=== PATIENT | male | born 1990 | race Caucasian/White ===

== ENCOUNTER 2017-03-17 19:25 | Inpatient (IN) | payer MEDICAID ==
[~2017-03-17] VITALS: Ht 188 cm; Wt 101.7 kg
[~2017-03-17 19:25] MED LIST: HYDR-4031 PO; LITH300C3 PO; VITAD1000 PO
[2017-03-17 20:00] VITALS: BP 108/78
[2017-03-17] MEDS ORDERED: ARIP300S3 IM (20:24)
[2017-03-17] MEDS ORDERED: LORazepam 2 MG TABLET PO PRN (20:30)
[2017-03-17] MEDS ORDERED: ZOLPIDEM TARTRATE 10 MG TABLET PO PRN (20:30)
[2017-03-17] MEDS ORDERED: HALOPERIDOL 5 MG TABLET PO PRN (20:30)
[2017-03-17] MEDS ORDERED: PNEUMOCOCCAL VACCINE POLYVALENT 0.5 ML VIAL [PPSV23] IM ONE (21:15)
[2017-03-18] MEDS: LITHIUM CARBONATE 300 MG CAPSULE PO SCH ×2 (10:05→16:19)
[2017-03-18] MEDS: SERTRALINE HCL 50 MG TABLET PO SCH (10:05)
[2017-03-18 10:21] VITALS: BP 120/66
[2017-03-18] MEDS ORDERED: BENZOCAINE/MENTHOL LOZENGE [8 LOZENGES/PACKET] MM PRN (12:00)
[2017-03-18] MEDS ORDERED: BACITRACIN 28.4 GM OINTMENT TP PRN (12:00)
[2017-03-18] MEDS ORDERED: LOPERAMIDE HCL 2 MG CAPSULE PO PRN (12:00)
[2017-03-18] MEDS ORDERED: CloNIDine HCL 0.1 MG TABLET PO PRN (12:00)
[2017-03-18] MEDS ORDERED: MAGNESIUM HYDROXIDE SUSPENSION 30 ML UDCUP PO PRN (12:00)
[2017-03-18] MEDS ORDERED: ALBUTEROL SULFATE HFA 90 MCG/PUFF 8 GM INHALER IH PRN (12:00)
[2017-03-18] MEDS ORDERED: IBUPROFEN 600 MG TABLET PO PRN (12:00)
[2017-03-18] MEDS ORDERED: TRIAMCINOLONE 0.1% 15 GM OINTMENT TP PRN (12:00)
[2017-03-18] MEDS ORDERED: ACETAMINOPHEN 325 MG TABLET PO PRN (12:00)
[2017-03-18] MEDS ORDERED: ONDANSETRON HCL 4 MG TABLET PO PRN (12:00)
[2017-03-18] MEDS ORDERED: PETROLATUM,WHITE 71 GM JELLY TP PRN (12:00)
[2017-03-18] MEDS ORDERED: MAG HYDROX/AL HYDROX/SIMETH ES 30 ML SUSPENSION UDCUP PO PRN (12:00)
[2017-03-19 08:30] VITALS: BP 90/69
[2017-03-19] MEDS: CHOLECALCIFEROL (VIT D3) 1,000 UNITS TABLET PO SCH (09:15)
[2017-03-19] MEDS: LITHIUM CARBONATE 300 MG CAPSULE PO SCH ×2 (09:15→16:10)
[2017-03-19] MEDS: SERTRALINE HCL 50 MG TABLET PO SCH (09:15)
[2017-03-19 17:07] VITALS: BP 117/71
[2017-03-20 07:10] LABS: BASOPHILS % (AUTO) 0.5 % (0.0-2.0); EOSINOPHILS % (AUTO) 6.5 % (1.0-6.0); HEMATOCRIT 45.5 % (41-53); HEMOGLOBIN 15.3 g/dL (13.5-17.5); LYMPHOCYTES # (AUTO) 1.5 K/uL (1.0-4.8); LYMPHOCYTES % (AUTO) 23.9 % (22.0-44.0); MEAN CORPUSCULAR HEMOGLOBIN 29.5 pg (26.0-34.0); MEAN CORPUSCULAR HGB CONC 33.5 G/dL (31.0-37.0); MEAN CORPUSCULAR VOLUME 88 fL (80-100); MONOCYTES # (AUTO) 0.5 K/uL (0.1-1.0); MONOCYTES % (AUTO) 7.6 % (2.0-9.0); NEUTROPHILS # (AUTO) 3.9 K/uL (1.8-7.7); NEUTROPHILS % (AUTO) 61.5 % (40.0-70.0); PLATELET COUNT (AUTO) 217 K/uL (150-450); RED BLOOD CELL COUNT(AUTO) 5.17 MIL/uL (4.50-5.90); RED CELL DISTRIBUTION WIDTH 14.5 % (11.5-14.5); WHITE BLOOD COUNT (AUTO) 6.3 K/uL (4.5-11.0)
[2017-03-20 07:57] LABS: HEMOGLOBIN A1C 5.4 % (4.5-6.2)
[2017-03-20 08:11] LABS: ALANINE AMINOTRANSFERASE 81 U/L (12-78); ALBUMIN 4.1 g/dL (3.4-5.0); ANION GAP 10 mmol/L (8-16); ASPARTATE AMINOTRANSFERASE 26 U/L (15-37); BILIRUBIN,TOTAL 0.4 mg/dL (0.1-1.0); CALCIUM, TOTAL 8.7 mg/dL (8.8-10.5); CARBON DIOXIDE 24 mmol/L (22-29); CHLORIDE 106 mmol/L (98-107); CHOL/HDL RATIO 4.3 (4.2-7.3); CREATININE 0.91 mg/dL (0.60-1.30); GLOMERULAR FILTR. RATE CALC > 60 mL/min (>60); POTASSIUM 4.2 mmol/L (3.5-5.1); SODIUM SERUM 140 mmol/L (136-145); THYROID STIMULATING HORMONE 0.33 uIU/mL (0.36-3.74); TOTAL PROTEIN, SERUM 7.6 g/dL (6.4-8.2); UREA NITROGEN, BLOOD 13 mg/dL (7-18)
[2017-03-20] MEDS: CHOLECALCIFEROL (VIT D3) 1,000 UNITS TABLET PO SCH (09:54)
[2017-03-20] MEDS: SERTRALINE HCL 50 MG TABLET PO SCH (09:55)
[2017-03-20] MEDS: LITHIUM CARBONATE 300 MG CAPSULE PO SCH ×2 (09:56→17:03)
[2017-03-20 10:20] VITALS: BP 113/65
[2017-03-20 18:25] VITALS: BP 122/80
[2017-03-21 08:47] VITALS: BP 129/69
[2017-03-21] MEDS: LITHIUM CARBONATE 300 MG CAPSULE PO SCH ×2 (10:07→17:15)
[2017-03-21] MEDS: SERTRALINE HCL 50 MG TABLET PO SCH (10:07)
[2017-03-21] MEDS: CHOLECALCIFEROL (VIT D3) 1,000 UNITS TABLET PO SCH (10:07)
[2017-03-21 16:44] VITALS: BP 126/71
[2017-03-22 08:42] VITALS: BP 124/74
[2017-03-22] MEDS: LITHIUM CARBONATE 300 MG CAPSULE PO SCH (09:00)
[2017-03-22] MEDS: CHOLECALCIFEROL (VIT D3) 1,000 UNITS TABLET PO SCH (09:00)
[2017-03-22] MEDS: SERTRALINE HCL 50 MG TABLET PO SCH (09:00)
[2017-03-22] MEDS ORDERED: SERT50TA12 PO (11:50)
== END 2017-03-22 15:42 | disposition home or self-care (01) | DRG 750 ==
LOC: 3EI 20:41 → EDSTATUS 20:42
PROVIDERS: ADMIT Psychiatry & Neurology Psychiatry; ATTEND Psychiatry & Neurology Psychiatry
DX: F20.0 Paranoid schizophrenia (principal); Z91.19 Patient's noncompliance with other medical treatment and regimen; E55.9 Vitamin D deficiency, unspecified; E66.9 Obesity, unspecified; F12.90 Cannabis use, unspecified, uncomplicated; F17.200 Nicotine dependence, unspecified, uncomplicated; G47.00 Insomnia, unspecified; J45.909 Unspecified asthma, uncomplicated; K59.00 Constipation, unspecified; L30.9 Dermatitis, unspecified; Z59.0 Homelessness; Z71.51 Drug abuse counseling and surveillance of drug abuser; Z65.3 Problems related to other legal circumstances; Z28.21 Immunization not carried out because of patient refusal
CPT/HCPCS: 82306; 83036; 84439; 84443

== ENCOUNTER 2017-04-09 20:11 | Inpatient (IN) | payer MEDICAID ==
[~2017-04-09 20:11] MED LIST changes: -HYDR-4031 PO; +SERT50TA12 PO
[2017-04-09] MEDS ORDERED: DiphenhydrAMINE HCL 50 MG/ML VIAL ONE (20:44)
[2017-04-09] MEDS ORDERED: HALOPERIDOL LACTATE 5 MG/ML VIAL ONE (20:44)
[2017-04-09] MEDS ORDERED: LORazepam 2 MG/ML VIAL ONE (20:44)
[2017-04-09] MEDS ORDERED: DiphenhydrAMINE HCL 50 MG/ML VIAL IM ONE (20:45)
[2017-04-09] MEDS ORDERED: HALOPERIDOL LACTATE 5 MG/ML VIAL IM ONE (20:45)
[2017-04-09] MEDS ORDERED: LORazepam 2 MG/ML VIAL IM ONE (20:45)
[2017-04-09] MEDS ORDERED: ZOLPIDEM TARTRATE 10 MG TABLET PO PRN (20:45)
[2017-04-09 21:00] VITALS: BP 147/92
[2017-04-09] MEDS ORDERED: PNEUMOCOCCAL VACCINE POLYVALENT 0.5 ML VIAL [PPSV23] IM ONE (21:45)
[2017-04-09 21:47] VITALS: BP 120/76
[2017-04-10 08:32] VITALS: BP 130/71
[2017-04-10] MEDS ORDERED: ARIPiprazole ER SUSPENSION 400 MG PRE-FILLED DUAL CHAMBER SYRINGE IM ONE (09:00)
[2017-04-10] MEDS: SERTRALINE HCL 50 MG TABLET PO SCH (10:13)
[2017-04-10] MEDS: HALOPERIDOL 5 MG TABLET PO PRN (10:13)
[2017-04-10] MEDS: ARIPiprazole 10 MG TABLET PO SCH (10:14)
[2017-04-10] MEDS: LORazepam 2 MG TABLET PO PRN (10:14)
[2017-04-10] MEDS ORDERED: MAGNESIUM HYDROXIDE SUSPENSION 30 ML UDCUP PO PRN (10:30)
[2017-04-10] MEDS ORDERED: BACITRACIN 28.4 GM OINTMENT TP PRN (10:30)
[2017-04-10] MEDS ORDERED: MAG HYDROX/AL HYDROX/SIMETH ES 30 ML SUSPENSION UDCUP PO PRN (10:30)
[2017-04-10] MEDS ORDERED: ACETAMINOPHEN 325 MG TABLET PO PRN (10:30)
[2017-04-10] MEDS ORDERED: BENZOCAINE/MENTHOL LOZENGE MM PRN (10:30)
[2017-04-10] MEDS ORDERED: ONDANSETRON HCL 4 MG TABLET PO PRN (10:30)
[2017-04-10] MEDS ORDERED: PETROLATUM,WHITE 71 GM JELLY TP PRN (10:30)
[2017-04-10] MEDS ORDERED: LOPERAMIDE HCL 2 MG CAPSULE PO PRN (10:30)
[2017-04-10] MEDS ORDERED: ALBUTEROL SULFATE HFA 90 MCG/PUFF 8 GM INHALER IH PRN (10:30)
[2017-04-10] MEDS ORDERED: CloNIDine HCL 0.1 MG TABLET PO PRN (10:30)
[2017-04-10] MEDS ORDERED: IBUPROFEN 600 MG TABLET PO PRN (10:30)
[2017-04-10] MEDS: LITHIUM CARBONATE 300 MG ER TABLET PO SCH ×2 (13:38→21:43)
[2017-04-10] MEDS: HydrOXYzine PAMOATE 25 MG CAPSULE PO SCH ×2 (13:42→17:02)
[2017-04-10] MEDS ORDERED: TRIAMCINOLONE 0.1% 15 GM OINTMENT TP PRN (15:30)
[2017-04-10 16:00] VITALS: BP 118/70
[2017-04-11 06:56] VITALS: BP 130/72
[2017-04-11 08:00] VITALS: BP 127/73
[2017-04-11 09:05] LABS: BASOPHILS % (AUTO) 0.3 % (0.0-2.0); EOSINOPHILS % (AUTO) 4.5 % (1.0-6.0); HEMATOCRIT 43.4 % (41-53); HEMOGLOBIN 14.5 g/dL (13.5-17.5); LYMPHOCYTES # (AUTO) 1.5 K/uL (1.0-4.8); MEAN CORPUSCULAR HEMOGLOBIN 29.8 pg (26.0-34.0); MEAN CORPUSCULAR HGB CONC 33.5 G/dL (31.0-37.0); MEAN CORPUSCULAR VOLUME 89 fL (80-100); MONOCYTES # (AUTO) 0.4 K/uL (0.1-1.0); MONOCYTES % (AUTO) 4.9 % (2.0-9.0); NEUTROPHILS # (AUTO) 6.3 K/uL (1.8-7.7); NEUTROPHILS % (AUTO) 73.3 % (40.0-70.0); PLATELET COUNT (AUTO) 218 K/uL (150-450); RED BLOOD CELL COUNT(AUTO) 4.88 MIL/uL (4.50-5.90); RED CELL DISTRIBUTION WIDTH 14.4 % (11.5-14.5); WHITE BLOOD COUNT (AUTO) 8.6 K/uL (4.5-11.0)
[2017-04-11] MEDS: SERTRALINE HCL 50 MG TABLET PO SCH (09:12)
[2017-04-11] MEDS: HydrOXYzine PAMOATE 25 MG CAPSULE PO SCH ×3 (09:12→16:29)
[2017-04-11] MEDS: LITHIUM CARBONATE 300 MG ER TABLET PO SCH ×2 (09:12→16:29)
[2017-04-11] MEDS: ARIPiprazole 10 MG TABLET PO SCH (09:28)
[2017-04-11 10:08] LABS: ALANINE AMINOTRANSFERASE 61 U/L (12-78); ALBUMIN 3.7 g/dL (3.4-5.0); ANION GAP 9 mmol/L (8-16); ASPARTATE AMINOTRANSFERASE 20 U/L (15-37); BILIRUBIN,TOTAL 0.3 mg/dL (0.1-1.0); CALCIUM, TOTAL 8.4 mg/dL (8.8-10.5); CARBON DIOXIDE 24 mmol/L (22-29); CHLORIDE 107 mmol/L (98-107); CHOL/HDL RATIO 3.6 (4.2-7.3); CREATININE 0.88 mg/dL (0.60-1.30); GLOMERULAR FILTR. RATE CALC > 60 mL/min (>60); POTASSIUM 3.9 mmol/L (3.5-5.1); SODIUM SERUM 140 mmol/L (136-145); THYROID STIMULATING HORMONE 0.64 uIU/mL (0.36-3.74); UREA NITROGEN, BLOOD 13 mg/dL (7-18)
[2017-04-11 10:40] LABS: HEMOGLOBIN A1C 5.6 % (4.5-6.2)
[2017-04-11 16:00] VITALS: BP 140/89
[2017-04-12 08:44] VITALS: BP 106/58
[2017-04-12] MEDS: SERTRALINE HCL 50 MG TABLET PO SCH (09:24)
[2017-04-12] MEDS: LITHIUM CARBONATE 300 MG ER TABLET PO SCH ×2 (09:24→16:34)
[2017-04-12] MEDS: HydrOXYzine PAMOATE 25 MG CAPSULE PO SCH ×3 (09:24→16:34)
[2017-04-12] MEDS: ARIPiprazole 10 MG TABLET PO SCH (09:24)
[2017-04-12 16:00] VITALS: BP 130/67
[2017-04-13 06:30] VITALS: BP 125/74
[2017-04-13 08:27] VITALS: BP 127/71
[2017-04-13] MEDS: SERTRALINE HCL 50 MG TABLET PO SCH (08:35)
[2017-04-13] MEDS: HydrOXYzine PAMOATE 25 MG CAPSULE PO SCH ×3 (08:35→17:07)
[2017-04-13] MEDS: LITHIUM CARBONATE 300 MG ER TABLET PO SCH ×2 (08:35→17:07)
[2017-04-13] MEDS: ARIPiprazole 10 MG TABLET PO SCH (08:35)
[2017-04-13 16:37] VITALS: BP 132/63
[2017-04-14 08:12] VITALS: BP 111/66
[2017-04-14] MEDS: HydrOXYzine PAMOATE 25 MG CAPSULE PO SCH ×3 (09:23→16:38)
[2017-04-14] MEDS: ARIPiprazole 10 MG TABLET PO SCH (09:29)
[2017-04-14] MEDS: SERTRALINE HCL 50 MG TABLET PO SCH (09:29)
[2017-04-14] MEDS: LITHIUM CARBONATE 300 MG ER TABLET PO SCH (09:29)
[2017-04-14 16:33] VITALS: BP 126/85
[2017-04-14] MEDS: LORazepam 2 MG TABLET PO PRN (16:38)
[2017-04-14] MEDS: HALOPERIDOL 5 MG TABLET PO PRN (16:39)
[2017-04-15] MEDS: HydrOXYzine PAMOATE 25 MG CAPSULE PO SCH ×3 (08:57→16:48)
[2017-04-15] MEDS: ARIPiprazole 10 MG TABLET PO SCH (08:57)
[2017-04-15] MEDS: SERTRALINE HCL 50 MG TABLET PO SCH (08:57)
[2017-04-15 09:37] VITALS: BP 114/70
[2017-04-15] MEDS: LITHIUM CARBONATE 300 MG CAPSULE PO SCH ×2 (11:19→16:48)
[2017-04-15 16:00] VITALS: BP 115/67
[2017-04-15] MEDS: LORazepam 2 MG TABLET PO PRN (16:48)
[2017-04-16 02:37] VITALS: BP 110/72
[2017-04-16 08:00] VITALS: BP 122/70
[2017-04-16] MEDS: SERTRALINE HCL 50 MG TABLET PO SCH (09:25)
[2017-04-16] MEDS: HydrOXYzine PAMOATE 25 MG CAPSULE PO SCH ×3 (09:25→16:31)
[2017-04-16] MEDS: LITHIUM CARBONATE 300 MG CAPSULE PO SCH ×2 (09:25→16:31)
[2017-04-16] MEDS: ARIPiprazole 10 MG TABLET PO SCH (09:25)
[2017-04-16 16:00] VITALS: BP 114/73
[2017-04-16] MEDS: LORazepam 2 MG TABLET PO PRN (16:31)
[2017-04-17 06:40] VITALS: BP 113/63
[2017-04-17 08:17] VITALS: BP 117/59
[2017-04-17] MEDS: ARIPiprazole 10 MG TABLET PO SCH (09:19)
[2017-04-17] MEDS: SERTRALINE HCL 50 MG TABLET PO SCH (09:20)
[2017-04-17] MEDS: HydrOXYzine PAMOATE 25 MG CAPSULE PO SCH ×3 (09:20→16:16)
[2017-04-17] MEDS: LITHIUM CARBONATE 300 MG CAPSULE PO SCH ×2 (09:20→16:16)
[2017-04-17] MEDS ORDERED: ARIPiprazole ER SUSPENSION 400 MG PRE-FILLED DUAL CHAMBER SYRINGE IM ONE (13:00)
[2017-04-17 16:00] VITALS: BP 116/76
[2017-04-17] MEDS: LORazepam 2 MG TABLET PO PRN (16:16)
[2017-04-18 06:24] VITALS: BP 112/75
[2017-04-18 08:14] VITALS: BP 120/65
[2017-04-18] MEDS: HydrOXYzine PAMOATE 25 MG CAPSULE PO SCH ×3 (09:58→16:40)
[2017-04-18] MEDS: LORazepam 2 MG TABLET PO PRN ×2 (09:58→16:40)
[2017-04-18] MEDS: ARIPiprazole 10 MG TABLET PO SCH (09:58)
[2017-04-18] MEDS: LITHIUM CARBONATE 300 MG CAPSULE PO SCH ×2 (09:58→16:40)
[2017-04-18] MEDS: SERTRALINE HCL 50 MG TABLET PO SCH (09:58)
[2017-04-18 16:00] VITALS: BP 131/69
[2017-04-19 06:00] VITALS: BP 119/71
[2017-04-19 08:35] VITALS: BP 123/75
[2017-04-19] MEDS: LITHIUM CARBONATE 300 MG CAPSULE PO SCH ×2 (09:46→16:30)
[2017-04-19] MEDS: HydrOXYzine PAMOATE 25 MG CAPSULE PO SCH ×3 (09:46→16:30)
[2017-04-19] MEDS: SERTRALINE HCL 50 MG TABLET PO SCH (09:46)
[2017-04-19] MEDS: ARIPiprazole 10 MG TABLET PO SCH (09:46)
[2017-04-19 16:00] VITALS: BP 130/70
[2017-04-19] MEDS: LORazepam 2 MG TABLET PO PRN (16:30)
[2017-04-20 07:03] VITALS: BP 129/78
[2017-04-20 08:00] VITALS: BP 125/81
[2017-04-20] MEDS: HydrOXYzine PAMOATE 25 MG CAPSULE PO SCH ×3 (09:07→16:15)
[2017-04-20] MEDS: ARIPiprazole 10 MG TABLET PO SCH (09:07)
[2017-04-20] MEDS: LITHIUM CARBONATE 300 MG CAPSULE PO SCH ×2 (09:07→16:15)
[2017-04-20] MEDS: SERTRALINE HCL 50 MG TABLET PO SCH (09:07)
[2017-04-20] MEDS: LORazepam 2 MG TABLET PO PRN ×2 (09:07→16:15)
[2017-04-20 16:00] VITALS: BP 114/71
[2017-04-21 06:25] VITALS: BP 104/65
[2017-04-21 08:44] VITALS: BP 121/72
[2017-04-21] MEDS: HydrOXYzine PAMOATE 25 MG CAPSULE PO SCH ×3 (09:22→16:22)
[2017-04-21] MEDS: ARIPiprazole 10 MG TABLET PO SCH (09:22)
[2017-04-21] MEDS: LORazepam 2 MG TABLET PO PRN ×2 (09:23→16:22)
[2017-04-21] MEDS: LITHIUM CARBONATE 300 MG CAPSULE PO SCH ×2 (09:23→16:22)
[2017-04-21] MEDS: SERTRALINE HCL 50 MG TABLET PO SCH (09:23)
[2017-04-21 16:00] VITALS: BP 118/68
[2017-04-22 06:50] VITALS: BP 118/72
[2017-04-22 08:42] VITALS: BP 124/75
[2017-04-22] MEDS: ARIPiprazole 10 MG TABLET PO SCH (09:52)
[2017-04-22] MEDS: SERTRALINE HCL 50 MG TABLET PO SCH (09:52)
[2017-04-22] MEDS: LORazepam 2 MG TABLET PO PRN ×2 (09:52→16:52)
[2017-04-22] MEDS: HydrOXYzine PAMOATE 25 MG CAPSULE PO SCH ×3 (09:52→16:51)
[2017-04-22] MEDS: LITHIUM CARBONATE 300 MG CAPSULE PO SCH ×2 (09:52→16:51)
[2017-04-22 16:34] VITALS: BP 118/71
[2017-04-23 06:41] VITALS: BP 119/66
[2017-04-23 09:45] VITALS: BP 111/68
[2017-04-23] MEDS: LITHIUM CARBONATE 300 MG CAPSULE PO SCH ×2 (09:48→16:40)
[2017-04-23] MEDS: SERTRALINE HCL 50 MG TABLET PO SCH (09:48)
[2017-04-23] MEDS: HydrOXYzine PAMOATE 25 MG CAPSULE PO SCH ×3 (09:48→16:40)
[2017-04-23] MEDS: ARIPiprazole 10 MG TABLET PO SCH (09:48)
[2017-04-23 16:26] VITALS: BP 134/71
[2017-04-23] MEDS: LORazepam 2 MG TABLET PO PRN (16:40)
[2017-04-24 06:26] VITALS: BP 108/62
[2017-04-24] MEDS: LITHIUM CARBONATE 300 MG CAPSULE PO SCH (08:34)
[2017-04-24] MEDS: ARIPiprazole 10 MG TABLET PO SCH (08:34)
[2017-04-24] MEDS: LORazepam 2 MG TABLET PO PRN ×2 (08:34→16:17)
[2017-04-24] MEDS: HydrOXYzine PAMOATE 25 MG CAPSULE PO SCH ×3 (08:34→16:17)
[2017-04-24] MEDS: SERTRALINE HCL 50 MG TABLET PO SCH (08:34)
[2017-04-24 08:38] VITALS: BP 105/62
[2017-04-24 16:00] VITALS: BP 130/81
[2017-04-24] MEDS: LITHIUM CITRATE SOLUTION 8 MEQ/5 ML [8 MEQ = 300 MG] UDCUP PO SCH (16:17)
[2017-04-25 01:24] VITALS: BP 115/68
[2017-04-25] MEDS: SERTRALINE HCL 50 MG TABLET PO SCH (08:47)
[2017-04-25] MEDS: HydrOXYzine PAMOATE 25 MG CAPSULE PO SCH ×3 (08:47→16:31)
[2017-04-25] MEDS: ARIPiprazole 10 MG TABLET PO SCH (08:49)
[2017-04-25 09:16] VITALS: BP 114/61
[2017-04-25] MEDS: LITHIUM CITRATE SOLUTION 8 MEQ/5 ML [8 MEQ = 300 MG] UDCUP PO SCH ×2 (09:21→16:32)
[2017-04-25 16:35] VITALS: BP 106/75
[2017-04-26 05:59] VITALS: BP 115/64
[2017-04-26] MEDS: LITHIUM CITRATE SOLUTION 8 MEQ/5 ML [8 MEQ = 300 MG] UDCUP PO SCH (08:45)
[2017-04-26] MEDS: ARIPiprazole 10 MG TABLET PO SCH (08:46)
[2017-04-26] MEDS: SERTRALINE HCL 50 MG TABLET PO SCH (08:46)
[2017-04-26] MEDS: HydrOXYzine PAMOATE 25 MG CAPSULE PO SCH ×2 (08:46→12:48)
[2017-04-26 09:10] VITALS: BP 120/79
[2017-04-26] MEDS ORDERED: LITH8SOL PO (10:14)
[2017-04-26] MEDS ORDERED: HYDR-4031 PO (10:14)
[2017-04-26] MEDS ORDERED: ARIP20TA PO (10:14)
== END 2017-04-26 12:20 | disposition home or self-care (01) | DRG 750 ==
LOC: EDSTATUS 20:48 → B3A 20:48 → B2S 04-24 13:44
PROVIDERS: ADMIT Psychiatry & Neurology Psychiatry; ATTEND Psychiatry & Neurology Psychiatry
DX: F20.0 Paranoid schizophrenia (principal); E55.9 Vitamin D deficiency, unspecified; E66.9 Obesity, unspecified; F12.90 Cannabis use, unspecified, uncomplicated; G47.00 Insomnia, unspecified; J45.909 Unspecified asthma, uncomplicated; K59.00 Constipation, unspecified; L30.9 Dermatitis, unspecified; R51 Headache; Z71.51 Drug abuse counseling and surveillance of drug abuser; E58 Dietary calcium deficiency; Z79.899 Other long term (current) drug therapy; Z28.21 Immunization not carried out because of patient refusal
CPT/HCPCS: 83036; 84443; 87081; J0401; J1200; J1630; J2060

== ENCOUNTER 2022-06-25 19:18 | Emergency (ER) | payer MEDICAID ==
[~2022-06-25] VITALS: Ht 185.4 cm; Wt 114.0 kg
[~2022-06-25 19:18] MED LIST changes: +ARIP20TA PO; +HYDR-4808 PO; -LITH300C3 PO; +LITH8SOL PO; +SERT-158 PO; -SERT50TA12 PO; -VITAD1000 PO
[2022-06-25] MEDS ORDERED: LORazepam 2 MG TABLET PO ONE (20:00)
[2022-06-25] MEDS ORDERED: ONDANSETRON HCL 4 MG TABLET PO ONE (20:00)
[2022-06-25 20:15] LABS: BASOPHILS % (AUTO) 0.6 % (0.0-2.0); EOSINOPHILS % (AUTO) 6.2 % (1.0-6.0); HEMATOCRIT 43.6 % (41-53); HEMOGLOBIN 14.2 g/dL (13.5-17.5); LYMPHOCYTES # (AUTO) 1.4 K/uL (1.0-4.8); LYMPHOCYTES % (AUTO) 24.6 % (22.0-44.0); MEAN CORPUSCULAR HEMOGLOBIN 29.4 pg (26.0-34.0); MEAN CORPUSCULAR HGB CONC 32.6 G/dL (31.0-37.0); MEAN CORPUSCULAR VOLUME 90 fL (80-100); MONOCYTES # (AUTO) 0.4 K/uL (0.1-1.0); MONOCYTES % (AUTO) 7.9 % (2.0-9.0); NEUTROPHILS # (AUTO) 3.4 K/uL (1.8-7.7); NEUTROPHILS % (AUTO) 60.7 % (40.0-70.0); PLATELET COUNT (AUTO) 212 K/uL (150-450); RED BLOOD CELL COUNT(AUTO) 4.83 MIL/uL (4.50-5.90); RED CELL DISTRIBUTION WIDTH 13.7 % (11.5-14.5)
[2022-06-25 20:22] LABS: COVID AG,FIA SOURCE NASOPHARYNGEAL
[2022-06-25 20:25] LABS: ANION GAP 7 mmol/L (8-16); CARBON DIOXIDE 28 mmol/L (22-29); CHLORIDE 106 mmol/L (98-107); CREATININE 0.83 mg/dL (0.60-1.30); GLUCOSE,RANDOM 98 mg/dL (70-110); POTASSIUM 3.8 mmol/L (3.5-5.1); SODIUM SERUM 141 mmol/L (136-145); UREA NITROGEN, BLOOD 12 mg/dL (7-18)
[2022-06-25 20:26] LABS: GLOMERULAR FILTR. RATE CALC > 60 mL/min (>60)
[2022-06-25 20:30] LABS: ALANINE AMINOTRANSFERASE 158 U/L (12-78); ALKALINE PHOSPHATASE 125 U/L (46-116); ASPARTATE AMINOTRANSFERASE 58 U/L (15-37); BILIRUBIN,TOTAL 0.2 mg/dL (0.1-1.0); TOTAL PROTEIN, SERUM 7.8 g/dL (6.4-8.2)
[2022-06-26 14:42] VITALS: BP 122/72
== END 2022-06-26 17:32 | disposition left against medical advice (07) ==
LOC: EMS 19:18
DX: F25.9 Schizoaffective disorder, unspecified (principal); F15.10 Other stimulant abuse, uncomplicated; J45.909 Unspecified asthma, uncomplicated; F31.9 Bipolar disorder, unspecified; F17.210 Nicotine dependence, cigarettes, uncomplicated; F12.90 Cannabis use, unspecified, uncomplicated; F14.90 Cocaine use, unspecified, uncomplicated; Z20.822 Contact with and (suspected) exposure to COVID-19
CPT/HCPCS: 99285; 87426; 80053; 85025; 36415; G0480; Q0162

== ENCOUNTER 2022-06-26 20:41 | Emergency (ER) | payer MEDICAID ==
[~2022-06-26] VITALS: Ht 185.4 cm; Wt 100.0 kg
[2022-06-26 22:18] VITALS: BP 129/77
== END 2022-06-26 22:26 | disposition home or self-care (01) ==
LOC: EMS 20:43
DX: F41.9 Anxiety disorder, unspecified (principal); F15.10 Other stimulant abuse, uncomplicated; J45.909 Unspecified asthma, uncomplicated; F31.9 Bipolar disorder, unspecified; F20.9 Schizophrenia, unspecified; F17.210 Nicotine dependence, cigarettes, uncomplicated; F12.90 Cannabis use, unspecified, uncomplicated; F14.90 Cocaine use, unspecified, uncomplicated
CPT/HCPCS: 99281; Z7502

== ENCOUNTER 2022-06-27 08:45 | Inpatient (IN) | payer MEDICAID ==
[~2022-06-27] VITALS: Ht 185.4 cm; Wt 107.7 kg
[2022-06-27 10:03] LABS: COVID AG,FIA SOURCE NASOPHARYNGEAL
[2022-06-27 10:53] LABS: INFLUENZA TYPE A NEGATIVE FOR TYPE A (NEGATIVE); INFLUENZA TYPE B NEGATIVE FOR TYPE B (NEGATIVE)
[2022-06-27] MEDS ORDERED: ZOLPIDEM TARTRATE 10 MG TABLET PO PRN (13:30)
[2022-06-27 16:31] LABS: APPEARANCE,URINE CLEAR (CLEAR); BILIRUBIN,URINE NEGATIVE (NEGATIVE); GLUCOSE, URINE (UA) NEGATIVE (NEGATIVE); KETONES,URINE NEGATIVE (NEGATIVE); LEUKOCYTE ESTERASE ,URINE NEGATIVE (NEGATIVE); NITRATE,URINE NEGATIVE (NEGATIVE); OCCULT BLOOD,URINE NEGATIVE (NEGATIVE); SPECIFIC GRAVITIY, URINE 1.027 (1.003-1.030); UROBILINOGEN,URINE <=1.0 mg/dL (<=1.0)
[2022-06-27 16:37] LABS: AMPHET/METH SCREEN,URINE POSITIVE (NEGATIVE); BARBITURATE SCREEN, URINE NEGATIVE (NEGATIVE); BENZODIAZEPINES SCREEN,URINE NEGATIVE (NEGATIVE); CANNABINOID SCREEN,URINE POSITIVE (NEGATIVE); COCAINE SCREEN,URINE NEGATIVE (NEGATIVE); METHADONE SCREEN, URINE NEGATIVE (NEGATIVE); OPIATE SCREEN,URINE NEGATIVE (NEGATIVE)
[2022-06-27 16:38] LABS: PHENCYCLIDINE SCREEN,URINE NEGATIVE (NEGATIVE)
[2022-06-27 16:44] LABS: PROTEIN,URINE NEGATIVE (NEGATIVE)
[2022-06-27] MEDS: LORazepam 2 MG TABLET PO PRN (21:07)
[2022-06-27] MEDS: HALOPERIDOL 5 MG TABLET PO PRN (21:07)
[2022-06-28 01:46] VITALS: BP 127/97
[2022-06-28 10:31] VITALS: BP 115/80
[2022-06-28] MEDS: LORazepam 2 MG TABLET PO PRN ×2 (12:56→20:33)
[2022-06-28] MEDS: HALOPERIDOL 5 MG TABLET PO PRN ×2 (12:56→20:33)
[2022-06-28 16:22] VITALS: BP 120/78
[2022-06-29] MEDS: SERTRALINE HCL 50 MG TABLET PO SCH (09:00)
[2022-06-29] MEDS: ARIPiprazole 15 MG TABLET PO SCH (09:00)
[2022-06-29] MEDS: HydrOXYzine PAMOATE 25 MG CAPSULE PO SCH ×3 (09:00→16:36)
[2022-06-29 10:00] VITALS: BP 133/72
[2022-06-30 08:00] VITALS: BP 107/62
[2022-06-30] MEDS: HydrOXYzine PAMOATE 25 MG CAPSULE PO SCH ×3 (09:00→17:00)
[2022-06-30] MEDS: ARIPiprazole 15 MG TABLET PO SCH (09:00)
[2022-06-30] MEDS: SERTRALINE HCL 50 MG TABLET PO SCH (09:00)
[2022-06-30 16:00] VITALS: BP 126/82
[2022-07-01] MEDS: HydrOXYzine PAMOATE 25 MG CAPSULE PO SCH ×3 (09:19→16:54)
[2022-07-01] MEDS: SERTRALINE HCL 50 MG TABLET PO SCH (09:19)
[2022-07-01] MEDS: ARIPiprazole 15 MG TABLET PO SCH (09:19)
[2022-07-01 16:12] VITALS: BP 133/88
[2022-07-02 08:53] VITALS: BP 121/71
[2022-07-02] MEDS: SERTRALINE HCL 50 MG TABLET PO SCH (09:28)
[2022-07-02] MEDS: HydrOXYzine PAMOATE 25 MG CAPSULE PO SCH ×4 (09:28→16:38)
[2022-07-02] MEDS: ARIPiprazole 15 MG TABLET PO SCH (09:28)
[2022-07-02 16:23] VITALS: BP 110/70
[2022-07-03 07:28] LABS: COVID AG,FIA SOURCE NASAL SWAB
[2022-07-03 08:00] VITALS: BP 123/69
[2022-07-03] MEDS: ARIPiprazole 15 MG TABLET PO SCH ×2 (09:00→10:21)
[2022-07-03] MEDS: HydrOXYzine PAMOATE 25 MG CAPSULE PO SCH ×4 (09:00→17:00)
[2022-07-03] MEDS: LORazepam 2 MG TABLET PO PRN ×2 (10:21→16:23)
[2022-07-03] MEDS: SERTRALINE HCL 50 MG TABLET PO SCH (10:22)
[2022-07-03 16:04] VITALS: BP 140/77
[2022-07-03] MEDS: HALOPERIDOL 5 MG TABLET PO PRN (16:22)
[2022-07-04] MEDS: LORazepam 2 MG TABLET PO PRN (06:45)
[2022-07-04] MEDS: HALOPERIDOL 5 MG TABLET PO PRN (06:46)
[2022-07-04] MEDS: ARIPiprazole 15 MG TABLET PO SCH (09:00)
[2022-07-04] MEDS: HydrOXYzine PAMOATE 25 MG CAPSULE PO SCH ×3 (09:00→16:33)
[2022-07-04] MEDS: SERTRALINE HCL 50 MG TABLET PO SCH (09:00)
[2022-07-05] MEDS: HydrOXYzine PAMOATE 25 MG CAPSULE PO SCH ×4 (09:00→15:16)
[2022-07-05] MEDS: ARIPiprazole 15 MG TABLET PO SCH (10:04)
[2022-07-05] MEDS: SERTRALINE HCL 50 MG TABLET PO SCH (10:04)
== END 2022-07-05 17:04 | disposition home or self-care (01) | DRG 750 ==
LOC: EMS 08:49 → 3EI 22:49
PROVIDERS: ADMIT Psychiatry & Neurology Psychiatry; ATTEND Psychiatry & Neurology Psychiatry
DX: F25.9 Schizoaffective disorder, unspecified (principal); R45.851 Suicidal ideations; E55.9 Vitamin D deficiency, unspecified; Z20.822 Contact with and (suspected) exposure to COVID-19; E66.9 Obesity, unspecified; Z68.31 Body mass index [BMI] 31.0-31.9, adult; G47.00 Insomnia, unspecified; J45.909 Unspecified asthma, uncomplicated; K59.00 Constipation, unspecified; F12.90 Cannabis use, unspecified, uncomplicated; L30.9 Dermatitis, unspecified; F17.210 Nicotine dependence, cigarettes, uncomplicated
CPT/HCPCS: 81003; 87804; 99285

== ENCOUNTER 2023-07-07 14:12 | Emergency (ER) | payer MEDICAID ==
[~2023-07-07 14:12] MED LIST changes: -LITH8SOL PO
== END 2023-07-07 15:38 | disposition left against medical advice (07) ==
LOC: EMS 15:38
DX: Z53.21 Procedure and treatment not carried out due to patient leaving prior to being seen by health care provider (principal)
CPT/HCPCS: 99281; Z7502